=== PATIENT | female | born 1995 | race Caucasian/White ===

== ENCOUNTER 2025-08-16 17:43 | Inpatient (IN) | payer OTHER ==
[2025-08-16] MEDS ORDERED: Sodium Chloride 0.9% 10 ML Syringe FLUSH PRN ×2 (18:01→20:59)
[2025-08-16 18:29] LABS: MEAN PLATELET VOLUME 10.2 fl (9.4-12.3); NRBC ABSOLUTE 0.27 (0.00-0.02); NRBC PERCENT 2.7 % (0.0-0.2); PLATELET COUNT,PLT 275 K/mm3 (150-400); RED BLOOD CELL COUNT 3.40 M/mm3 (4.10-5.30); WHITE BLOOD CELL COUNT,WBC 9.92 K/mm3 (3.9-11.3)
[2025-08-16] MEDS: Lactated Ringers 1,000 ML IV SCH (18:30)
[2025-08-16] MEDS: Citric Acid/Sodium Citrate Solution 30 ML Cup PO ONE (18:45)
[2025-08-16] MEDS ORDERED: Oxytocin/0.9 % Sodium Chloride 30 UNIT/500 ML BAG IV SCH (18:45)
[2025-08-16] MEDS ORDERED: Morphine PF 10 MG/10 ML SDV ONE (18:48)
[2025-08-16] MEDS ORDERED: Phenylephrine 1% 10 MG/ML SDV ONE (18:48)
[2025-08-16] MEDS ORDERED: fentaNYL 100 MCG/2 ML SDV ONE (18:48)
[2025-08-16] MEDS ORDERED: Ondansetron 4 MG/2 ML SDV ONE ×2 (19:16)
[2025-08-16] MEDS ORDERED: Oxytocin/0.9 % Sodium Chloride 30 UNIT/500 ML BAG IV ONE (19:30)
[2025-08-16] MEDS ORDERED: Lactated Ringers 1,000 ML IV ONE (19:30)
[2025-08-16] MEDS ORDERED: Ondansetron 4 MG/2 ML SDV IVPUSH PRN (19:34)
[2025-08-16] MEDS ORDERED: fentaNYL 100 MCG/2 ML SDV IVPUSH PRN (19:34)
[2025-08-16] MEDS ORDERED: diphenhydrAMINE 50 MG/ML SDV IVPUSH PRN (19:34)
[2025-08-16] MEDS ORDERED: Naloxone 0.4 MG/ML SDV IVPUSH PRN (20:59)
[2025-08-16] MEDS ORDERED: ePHEDrine 50 MG/ML SDV IVPUSH PRN (20:59)
[2025-08-16] MEDS ORDERED: Ondansetron 4 MG/2 ML SDV IV PRN (20:59)
[2025-08-16] MEDS ORDERED: Sodium Chloride 0.9% 10 ML Syringe FLUSH SCH (21:00)
[2025-08-16] MEDS: Ketorolac 30 MG/ML SDV IVPUSH SCH (21:47)
[2025-08-17] MEDS: diphenhydrAMINE 50 MG/ML SDV IVPUSH PRN (01:44)
[2025-08-17] MEDS ORDERED: Ketorolac 30 MG/ML SDV IVPUSH SCH (14:00)
[2025-08-17 16:15] LABS: MEAN PLATELET VOLUME 10.5 fl (9.4-12.3); NRBC ABSOLUTE 0.12 (0.00-0.02); NRBC PERCENT 1.0 % (0.0-0.2); PLATELET COUNT,PLT 211 K/mm3 (150-400); RED BLOOD CELL COUNT 2.75 M/mm3 (4.10-5.30); WHITE BLOOD CELL COUNT,WBC 12.30 K/mm3 (3.9-11.3)
[2025-08-18 15:06] VITALS: BP 100/65; PULSE 82
== END 2025-08-18 13:45 | disposition home or self-care (01) | DRG 788 ==
LOC: JD.OBCHECK 17:43 → UNDOADMIN 19:12 → JD.OB 19:12 → UNDODISIN 08-18 13:45
PROVIDERS: ADMIT Obstetrics & Gynecology; ATTEND Obstetrics & Gynecology
PROC: 10D00Z1 Extraction of Products of Conception, Low, Open Approach (ICD-10-PCS; principal; 2025-08-16)
DX: O34.211 Maternal care for low transverse scar from previous cesarean delivery (principal); Z3A.38 38 weeks gestation of pregnancy; Z37.0 Single live birth; O99.02 Anemia complicating childbirth; D64.9 Anemia, unspecified
CPT/HCPCS: 36415; 59025; 85027; 86592; 86850; 86900; 86901; 94762; A9270-GY; J0690; J1200; J1885; J2274; J2371; J2405; J2765; J3010; J7120; J7121; J7999